=== PATIENT | female | born 2000 | race Native Hawaiian/Other Pacific Islander ===

== ENCOUNTER 2018-01-07 07:32 | Outpatient (CLI) | payer OTHER ==
[~2018-01-07 07:32] MED LIST: BROMFED DM PO; CEFD300C2 PO
== END 2018-01-07 07:35 | disposition short-term general hospital (02) ==
LOC: AMB 07:32
DX: M54.2 Cervicalgia (principal); S39.82XA Other specified injuries of lower back, initial encounter; V49.88XA Car occupant (driver) (passenger) injured in other specified transport accidents, initial encounter; Y93.89 Activity, other specified; Y92.89 Other specified places as the place of occurrence of the external cause; Y99.8 Other external cause status
CPT/HCPCS: A0425; A0427

== ENCOUNTER 2018-01-07 07:35 | Emergency (ER) | payer OTHER ==
[~2018-01-07] VITALS: Ht 165.1 cm; Wt 77.1 kg
[2018-01-07 07:36] VITALS: TEMP 97.7
[2018-01-07 09:19] VITALS: BP 112/74
== END 2018-01-07 09:19 | disposition home or self-care (01) ==
LOC: ED 07:35
DX: M54.2 Cervicalgia (principal); M54.9 Dorsalgia, unspecified; V89.2XXA Person injured in unspecified motor-vehicle accident, traffic, initial encounter
CPT/HCPCS: 99283; Q9963

== ENCOUNTER 2019-06-21 18:51 | Emergency (ER) | payer OTHER ==
[~2019-06-21] VITALS: Ht 165.1 cm; Wt 72.6 kg
[2019-06-21 19:41] LABS: PLATELET COUNT 149 K/uL (152-353)
[2019-06-21 20:25] VITALS: BP 109/64; TEMP 98.1
== END 2019-06-21 20:36 | disposition home or self-care (01) ==
LOC: ED 18:51
PROVIDERS: Family Medicine
DX: M54.9 Dorsalgia, unspecified (principal); R30.0 Dysuria
CPT/HCPCS: 80053; 81000; 81025; 85027; 99283

== ENCOUNTER 2020-08-25 21:28 | Emergency (ER) | payer OTHER ==
[~2020-08-25] VITALS: Ht 165.1 cm; Wt 70.3 kg
[2020-08-25] MEDS ORDERED: BUSPIRONE10 MG PO (21:47)
[2020-08-25 22:35] LABS: PLATELET COUNT 195 K/uL (152-353)
[2020-08-25 22:42] LABS: POTASSIUM 3.3 mmol/L (3.6-5.2)
[2020-08-25 22:59] VITALS: BP 128/73; TEMP 99.3
== END 2020-08-25 22:59 | disposition home or self-care (01) ==
LOC: ED 21:28
PROVIDERS: Family Medicine
DX: A08.4 Viral intestinal infection, unspecified (principal)
CPT/HCPCS: 36415; 80053; 81000; 82150; 83690; 85027; 99283